=== PATIENT | male | born 1995 | race Caucasian/White ===

== ENCOUNTER 2022-03-05 20:02 | Emergency (ER) | payer BC ==
[2022-03-05] MEDS ORDERED: Sodium Chloride 0.9% 10 ML Syringe FLUSH PRN (20:05)
[2022-03-05 21:27] LABS: ESTIMATED GFR 122 mL/min (>60)
== END 2022-03-05 21:58 | disposition home or self-care (01) ==
LOC: JD.ED 20:02
DX: R07.89 Other chest pain (principal); Z86.16 Personal history of COVID-19
CPT/HCPCS: 36415; 80053; 83735; 84484; 85025; 86140; 93005; 99285